=== PATIENT | male | born 1995 | race Caucasian/White ===

== ENCOUNTER 2018-01-10 12:57 | Emergency (ER) | payer OTHER ==
[~2018-01-10] VITALS: Ht 172.7 cm; Wt 75.0 kg
[2018-01-10 13:04] VITALS: TEMP 37; Ht 172.7 cm; Wt 75.0 kg
[2018-01-10] MEDS ORDERED: IBUPROFEN 600 MG TAB PO STA (13:33)
[2018-01-10 14:01] LABS: BASO % 0.3 %; BASO ABS # 0.02 K/uL (0-0.2); EOS % 0.5 %; EOS ABS # 0.04 K/uL (0-0.5); HEMATOCRIT 40.9 % (42-52); HEMOGLOBIN 13.7 g/dL (14.0-18.0); IG# 0.02 K/uL (0.00-0.02); LYMPH % 16.3 %; LYMPH ABS # 1.24 K/uL (1.2-3.4); MEAN CELL VOLUME 84.5 fL (80-100); MEAN CORPUSCULAR HEMOGLOBIN 28.3 pg (25-34); MEAN CORPUSCULAR HGB CONC 33.5 g/dl (32-36); MEAN PLATELET VOLUME 10.4 fL (7.4-10.4); MONO % 12.6 %; MONO ABS # 0.96 K/uL (0.11-0.59); NEUT ABS # 5.35 K/uL (1.4-6.5); PLATELET COUNT 199 K/uL (130-400); RED CELL DISTRIBUTION WIDTH CV 12.5 % (11.5-14.5); RED CELL DISTRIBUTION WIDTH SD 38.2 fL (36.4-46.3); WHITE BLOOD COUNT 7.63 K/uL (4.8-10.8)
[2018-01-10 14:14] LABS: PTT PATIENT 25.4 SECONDS (21.0-31.0)
[2018-01-10 14:19] LABS: CREATININE 0.92 mg/dl (0.60-1.40); POTASSIUM 3.7 mmol/L (3.5-5.1)
--- NOTE | 2018-01-10 14:42 | DIAGNOSTIC IMAGING REPORT ---
CT RIGHT FOOT NO CONTRAST CT DOSE: 212.86 mGy.cm CLINICAL HISTORY: Right foot pain and swelling. Negative conventional graphic study. TECHNIQUE: Helical images were acquired in the transverse plane. Sagittal and coronal reformatted imaging was acquired A dose lowering technique was utilized adhering to the principles of ALARA. COMPARISON STUDY: Conventional radiographic study dated 01/08/2018 FINDINGS: There is a 7 mm chip/avulsion fracture arising from the lateral aspect of the cuboid. There is a 3 mm chip fracture arising from the lateral aspect of the lateral cuneiform. There are tiny bony fragments adjacent to the bases of the second and third metatarsals, likely representing chip fractures. There is no evidence of tarsal metatarsal subluxation. There is prominent soft tissue edema. There are dorsal soft tissue lesions possibly representing areas of blistering. Clinical correlation is advocated. No fractures of the calcaneus or talus are visualized. The distal tibia and fibula are unremarkable in appearance. IMPRESSION: 1. 7 mm chip/avulsion fracture arising from the lateral aspect of the cuboid 2. 3 mm chip fracture arising from the lateral aspect of the lateral cuneiform 3. Tiny bony fragments adjacent to the base of the second and third metatarsals, likely representing chip fractures Electronically signed by: Luis Eduardo Clements M.D. 01/10/2018 2:40 PM Dictated Date/Time: 01/10/2018 2:27 PM
--- NOTE | 2018-01-10 14:46 | EMERGENCY ROOM VISIT NOTE ---
History First contact with patient: 13:10 Chief Complaint: FOOT PAIN Stated Complaint: POSSIBLE COMPARTMENT SYNDROME RIGHT FOOT History of Present Illness The patient is a 22 year old male who presents to the Emergency Room with complaints of worsening right foot bruising, swelling, and pain. He states on Wednesday he was seen here in the evening due to a sprain/contusion of the right foot. He had been running around at a tailgate when he tripped, falling and landing on the foot. No fractures noted on x-rays at the time of the patient's visit. He has been using ice and elevating the foot, but has taken no medications for inflammation. He states he does have good mobility in the feet and toes, denies any numbness, however there is tingling and decreased sensation in the toes. He noticed blistering on the dorsal aspect of the foot, but denies any drainage. The patient has been wearing a postop shoe and using crutches for the past 2 days, but symptoms have been worsening. He went to urgent care today due to worsening symptoms. He was sent to the emergency department from urgent care to rule out compartment syndrome. He denies any previous fracture to this foot. He denies any drainage from the wound. He denies any purulent drainage or fever. He denies any significantly worsening or spreading redness. The patient denies any new injury. He has been attempting to avoid weightbearing as much as possible while home and using his crutches. Review of Systems A complete 10 point review of systems was reviewed with the patient with pertinent positives and negatives as per history of present illness. All else were negative. Past Medical/Surgical History Medical Problems: (1) No significant active problems Social History Smoking Status: Never Smoker Alcohol Use: occasionally Occupation Status: [employer] student Current/Historical Medications Scheduled Acetaminophen (Tylenol), 2 TAB PO Q6 Scheduled PRN Oxycodone Immediate Rel Tab (Roxicodone Ir), 1-2 TAB PO Q4H PRN for Pain Physical Exam Vital Signs Date Time Temp Pulse Resp B/P (MAP) Pulse Ox O2 Delivery O2 Flow Rate FiO2 01/10/18 16:53 76 16 155/93 98 01/10/18 13:04 37.0 77 20 132/85 99 Room Air Physical Exam VITAL SIGNS: Reviewed Nurse's notes, vital signs stable. GENERAL: This is a 22-year-old male, in no acute distress, but appears in pain, well-developed, well-nourished. MUSCULOSKELATAL: There is significant swelling, ecchymosis, and to an open blisters on the dorsal aspect of the right foot. There is mild erythema. There is mild warmth in the midfoot, with coolness of the toes. There is tenderness and swelling over the mid to distal aspect of the right foot. There is no tenderness over the lateral or medial malleolus. No tenderness of the tib/fib. The range of motion of the foot, toes, and ankle is severely limited secondary to pain. There is no tenderness over the plantar fascia. The skin is intact and there are no lacerations or puncture wounds. Dorsalis pedis pulse 2+ . Capillary refill less than 2 seconds. Medical Decision & Procedures ER Provider Diagnostic Interpretation: CT RIGHT FOOT NO CONTRAST CT DOSE: 212.86 mGy.cm CLINICAL HISTORY: Right foot pain and swelling. Negative conventional graphic study. TECHNIQUE: Helical images were acquired in the transverse plane. Sagittal and coronal reformatted imaging was acquired A dose lowering technique was utilized adhering to the principles of ALARA. COMPARISON STUDY: Conventional radiographic study dated 01/08/2018 FINDINGS: There is a 7 mm chip/avulsion fracture arising from the lateral aspect of the cuboid. There is a 3 mm chip fracture arising from the lateral aspect of the lateral cuneiform. There are tiny bony fragments adjacent to the bases of the second and third metatarsals, likely representing chip fractures. There is no evidence of tarsal metatarsal subluxation. There is prominent soft tissue edema. There are dorsal soft tissue lesions possibly representing areas of blistering. Clinical correlation is advocated. No fractures of the calcaneus or talus are visualized. The distal tibia and fibula are unremarkable in appearance. IMPRESSION: 1. 7 mm chip/avulsion fracture arising from the lateral aspect of the cuboid 2. 3 mm chip fracture arising from the lateral aspect of the lateral cuneiform 3. Tiny bony fragments adjacent to the base of the second and third metatarsals, likely representing chip fractures Electronically signed by: Luis Eduardo Clements M.D. 01/10/2018 2:40 PM Dictated Date/Time: 01/10/2018 2:27 PM R FOOT 2 VIEWS CLINICAL HISTORY: right foot fracture, r/o lis franc fx trauma. Pain. COMPARISON: CT 01/10/2018 DISCUSSION: The small avulsion fractures of the right foot are unchanged. Bony alignment is unaltered bilaterally. There is no evidence for Lisfranc dislocation. Mild soft tissue edema. Lateral projection is unremarkable. IMPRESSION: Small avulsions as procedure described. No acute process. No evidence for Lisfranc dislocation or disruption The above report was generated using voice recognition software. It may contain grammatical, syntax or spelling errors. Electronically signed by: Sher Lopez M.D. 01/10/2018 3:48 PM Dictated Date/Time: 01/10/2018 3:46 PM Study: Trauma. Fracture. Findings: Weightbearing views of the feet were obtained AP as well as lateral projections. Final images demonstrate all bony structures to be aligned anatomically. There is no evidence for disruption of the normal bony alignment pattern. IMPRESSION: Negative weightbearing views of the feet and ankles Electronically signed by: Sher Lopez M.D. 01/10/2018 3:50 PM Dictated Date/Time: 01/10/2018 3:49 PM Laboratory Results 01/10/18 13:48 Red Blood Count 4.84, Mean Corpuscular Volume 84.5, Mean Corpuscular Hemoglobin 28.3, Mean Corpuscular Hemoglobin Concent 33.5, Mean Platelet Volume 10.4, Neutrophils (%) (Auto) 70.0, Lymphocytes (%) (Auto) 16.3, Monocytes (%) (Auto) 12.6, Eosinophils (%) (Auto) 0.5, Basophils (%) (Auto) 0.3, Neutrophils # (Auto ) 5.35, Lymphocytes # (Auto) 1.24, Monocytes # (Auto) 0.96, Eosinophils # (Auto ) 0.04, Basophils # (Auto) 0.02 01/10/18 13:48 Test 01/10/18 13:48 White Blood Count 7.63 K/uL (4.8-10.8) Red Blood Count 4.84 M/uL (4.7-6.1) Hemoglobin 13.7 g/dL (14.0-18.0) Hematocrit 40.9 % (42-52) Mean Corpuscular Volume 84.5 fL (80-100) Mean Corpuscular Hemoglobin 28.3 pg (25-34) Mean Corpuscular Hemoglobin Concent 33.5 g/dl (32-36) Platelet Count 199 K/uL (130-400) Mean Platelet Volume 10.4 fL (7.4-10.4) Neutrophils (%) (Auto) 70.0 % Lymphocytes (%) (Auto) 16.3 % Monocytes (%) (Auto) 12.6 % Eosinophils (%) (Auto) 0.5 % Basophils (%) (Auto) 0.3 % Neutrophils # (Auto) 5.35 K/uL (1.4-6.5) Lymphocytes # (Auto) 1.24 K/uL (1.2-3.4) Monocytes # (Auto) 0.96 K/uL (0.11-0.59) Eosinophils # (Auto) 0.04 K/uL (0-0.5) Basophils # (Auto) 0.02 K/uL (0-0.2) RDW Standard Deviation 38.2 fL (36.4-46.3) RDW Coefficient of Variation 12.5 % (11.5-14.5) Immature Granulocyte % (Auto) 0.3 % Immature Granulocyte # (Auto) 0.02 K/uL (0.00-0.02) Prothrombin Time 10.9 SECONDS (9.0-12.0) Prothromb Time International Ratio 1.0 (0.9-1.1) Activated Partial Thromboplast Time 25.4 SECONDS (21.0-31.0) Partial Thromboplastin Ratio 1.0 Anion Gap 7.0 mmol/L (3-11) Est Creatinine Clear Calc Drug Dose 123.9 ml/min Estimated GFR () 138.3 Estimated GFR (Non- 119.3 BUN/Creatinine Ratio 11.1 (10-20) Lactic Acid Level 2.8 mmol/L (0.4-2.0) Calcium Level 9.0 mg/dl (8.5-10.1) Total Creatine Kinase 330 U/L (39-308) Medications Administered Medications (Trade) Dose Ordered Sig/Iain Route Start Time Stop Time Status Last Admin Dose Admin Ibuprofen (Motrin Tab) 800 mg NOW STAT PO 01/10/18 13:33 01/10/18 13:34 DC 01/10/18 13:39 800 MG Acetaminophen (Tylenol Tab) 1,000 mg NOW STAT PO 01/10/18 15:10 01/10/18 15:11 DC 01/10/18 15:30 1,000 MG ED Course The patient was seen and evaluated as above. He was given ibuprofen 800 mg and ice. His foot was placed in an elevated position. I discussed the case with Dr. urena. We agreed on management plan. IV access obtained, labs drawn. CT scan performed and reviewed by myself and radiologist as above. I consulted with Dr. Toro, orthopedic surgeon regarding the patient condition and possible consult. He did agree to come and evaluate the patient. Please see his dictation. He did request weightbearing standing AP x-rays of the bilateral feet and one frame. This was ordered. The patient was provided with prescriptions and discharge instructions. The patient was discharged home in good condition. Medical Decision This is a 22-year-old male patient presents to the emergency department today complaining of worsening bruising, swelling, blisters on his right foot. The patient did suffer a sprain/contusion on Wednesday, and presented to the emergency department was significant swelling of the foot. X-rays at that time were negative. He sought care at urgent care today, and was advised to come to the emergency department to rule out compartment syndrome. While here, CT scan was performed and did reveal multiple fractures as outlined above. The patient' s lab evaluation was significant for mild elevation in CK of 330 with elevated lactic acid of 2.8. I suspect these findings are related to the fracture and swelling. I did discuss these test results with the orthopedic surgeon. The patient's renal function and electrolytes were normal. His CBC was without significant leukocytosis, anemia, thrombocytopenia. Based on the patient's examination and lab and imaging findings, orthopedics was consulted. The patient was seen here in the emergency department by Dr. Toro who did splint the foot. The patient will be followed up outpatient this week for further management and care. All questions were answered to the patient's satisfaction. Etiologies such as soft tissue injury, fracture, dislocation, neurovascular compromise, compartment syndrome, as well as others were entertained. The chart was completed utilizing [employer] voice recognition software. Grammatical errors, random word insertions, pronoun errors, and incomplete sentences are an occasional consequence of this system due to software limitations, ambient noise, and hardware issues. Any formal questions or concerns about the content, text, or information contained within the body of this dictation should be directly addressed to the provider for clarification. [place] Drug Monitoring Program Search Results: patient reviewed within database, no issues identified Medication Reconcilliation Current Medication List: was personally reviewed by me Blood Pressure Screening Patient's blood pressure: Normal blood pressure Impression Primary Impression: Multiple fractures of right foot Departure Information Dispostion Home / Self-Care Condition GOOD Prescriptions Acetaminophen (Tylenol) 500 Mg Tab 2 TAB PO Q6, #100 TAB Prov: Kirstie Hernandez PA-C 01/10/18 Oxycodone Immediate Rel Tab (ROXICODONE IR) 5 Mg Tab 1-2 TAB PO Q4H Y for Pain, #36 TAB Prov: Kirstie Hernandez PA-C 01/10/18 Referrals No Doctor, Assigned (PCP) Elbert Toro MD Patient Instructions ED Fx Foot, Lisfranc Joint Injury About, My [facility] Additional Instructions You were seen in the ED today for multiple fractures of the right foot. Oxycodone (OxyIR) 5mg: Take 1-2 pills every four hours as needed for breakthrough pain. Avoid alcohol, operating machinery or dangerous equipment, working on ladders or roofs, DRIVING, or situations where being under the influence may be dangerous. It is recommended to use an [id number] stool softener such as Colace, 100mg twice daily while taking this medication to avoid constipation. Ibuprofen(Motrin, Advil) may be used for fever or pain. Use 600mg every six hours as needed. Take with food. Avoid using more than 2400mg in a 24 hour period. Do not use 2400mg per day for more than three consecutive days without physician direction. Prolonged inappropriate use can lead to stomach upset or ulcers. (AND/OR) Acetaminophen(Tylenol) may be used for fever or pain. Use 1000mg every six hours as needed. Avoid using more than 3000mg in a 24 hour period. Ice compresses for 20 minutes at a time four times daily for 2-3 days. Use the crutches as instructed. Avoid ALL weight bearing until directed by orthopedics. Rest and elevate your injury. Do not get the splint wet. If your splint feels excessively tight, you have worsening pain, develop numbness or tingling, or your digits appear blue, loosen the will wrap. Then reapply the will wrap gently without removing the splint. If your symptoms are not quickly relieved return to the ER for re- evaluation. Return to the ER immediately for any numbness, tingling, severe pain, extreme swelling in the extremity or as needed. Call [facility], [phone], as directed by Dr. Toro to arrange follow up for your injury. Problem Qualifiers Primary Impression: Multiple fractures of right foot Encounter type: subsequent encounter Fracture type: closed Fracture healing : with routine healing Qualified Codes: S92.901D - Unspecified fracture of right foot, subsequent encounter for fracture with routine healing
[2018-01-10] MEDS ORDERED: ACETAMINOPHEN 500 MG TAB PO STA (15:10)
--- NOTE | 2018-01-10 15:40 | Orthopedic Consultation ---
Orthopedic Consultation Date of Consultation: Jan 10, 2018. Attending Physician: Dr. Elbert Toro Reason for Consultation: Right foot Lis Los injury History of Present Illness This 23 yo M was seen in ED today for severe pain, swelling and bruising of Rt foot with development of Fracture blisters on dorsal surface of foot yesterday. Pt sustained hyperflexion type injury while attending a tailgate constitution party at the [employer] Wednesday. Pt was initially seen in ED Wednesday evening, placed into splint, given crutches and advised to be non-weightbearing and to follow up at our clinic some time this week. Due to increased pain not controlled with Ibuprofen, patient came back to ED today. Pt has N/T sensation in all toes and has sign pain with ROM of foot. Social History Smoking Status: Never Smoker Smokeless Tobacco Use: No Alcohol Use: socially Drug Use: none Marital Status: single Housing Status: lives with roommate Occupation Status: [employer] student Allergies Coded Allergies: No Known Allergies (Unverified , 01/09/18) Home Medications No Active Prescriptions or Reported Meds Review of Systems Constitutional: No fever, No chills, No sweats, No weight loss, No weakness, No fatigue, No problem reported Respiratory: No cough, No sputum, No wheezing, No shortness of breath, No dyspnea on exertion, No dyspnea at rest, No hemoptysis, No problem reported Cardiovascular: No chest pain, No orthopnea, No PND, No edema, No claudication , No palpitations, No problem reported Musculoskeletal: + joint pain, + muscle pain, + swelling Neurologic: + numbness/tingling (Right foot/toes) Integumentary: + new/changing skin lesions (fracture blisters to dorsal surface of foot) Physical Exam Date Time Temp Pulse Resp B/P (MAP) Pulse Ox O2 Delivery O2 Flow Rate FiO2 01/10/18 13:04 37.0 77 20 132/85 99 Room Air General Appearance: WD/WN, no apparent distress Head: normocephalic, atraumatic Eyes: PERRL, EOMI Extremities/Musculoskelatal: + pedal edema, + swelling, + pertinent finding ( Right foot: moderate edema and ecchymosis extending from ankle to DIP joints of all toes. Tender over entire dorsum of foot. #2 fracture blisters over distal portion of dorsum approx 1.5 x 1.5 cm and fluid filled. Tender over lateral ankle (ATFL). Tender over plantar surface of arch with edema and ecchymosis noted. N/T sensation to light touch over pads of all toes. Referred pain to base of 1st Metatarsal with active ROM of great toe. Mild pain with internal /external rotation of foot/ankle. Mild pain with active dorsi/plantar flexion. No achilles or calcaneal tenderness. Ecchymosis noted just distal to medial and lateral malleoli. Otherwise NV intact in RT LE. Calfs soft. Periph pulses palpable. Cap refill < 2 seconds.) Neurologic/Psych: alert, oriented x 3 Skin: + pertinent finding (See Musculoskeletal) Laboratory Results Last 24 Hours Test 01/10/18 13:48 White Blood Count 7.63 K/uL Red Blood Count 4.84 M/uL Hemoglobin 13.7 g/dL Hematocrit 40.9 % Mean Corpuscular Volume 84.5 fL Mean Corpuscular Hemoglobin 28.3 pg Mean Corpuscular Hemoglobin Concent 33.5 g/dl Platelet Count 199 K/uL Mean Platelet Volume 10.4 fL Neutrophils (%) (Auto) 70.0 % Lymphocytes (%) (Auto) 16.3 % Monocytes (%) (Auto) 12.6 % Eosinophils (%) (Auto) 0.5 % Basophils (%) (Auto) 0.3 % Neutrophils # (Auto) 5.35 K/uL Lymphocytes # (Auto) 1.24 K/uL Monocytes # (Auto) 0.96 K/uL Eosinophils # (Auto) 0.04 K/uL Basophils # (Auto) 0.02 K/uL RDW Standard Deviation 38.2 fL RDW Coefficient of Variation 12.5 % Immature Granulocyte % (Auto) 0.3 % Immature Granulocyte # (Auto) 0.02 K/uL Prothrombin Time 10.9 SECONDS Prothromb Time International Ratio 1.0 Activated Partial Thromboplast Time 25.4 SECONDS Partial Thromboplastin Ratio 1.0 Sodium Level 142 mmol/L Potassium Level 3.7 mmol/L Chloride Level 108 mmol/L Carbon Dioxide Level 27 mmol/L Anion Gap 7.0 mmol/L Blood Urea Nitrogen 10 mg/dl Creatinine 0.92 mg/dl Est Creatinine Clear Calc Drug Dose 123.9 ml/min Estimated GFR () 138.3 Estimated GFR (Non- 119.3 BUN/Creatinine Ratio 11.1 Random Glucose 94 mg/dl Lactic Acid Level 2.8 mmol/L Calcium Level 9.0 mg/dl Total Creatine Kinase 330 U/L Assessment & Plan Assessment: Rt foot Lis Franc injury. Plan: Standing weight bearing views. Place into plaster posterior/sugar tong splint. Plan on follow up at our clinic later this week.
--- NOTE | 2018-01-10 15:50 | DIAGNOSTIC IMAGING REPORT ---
R FOOT 2 VIEWS CLINICAL HISTORY: right foot fracture, r/o lis franc fx trauma. Pain. COMPARISON: CT 01/10/2018 DISCUSSION: The small avulsion fractures of the right foot are unchanged. Bony alignment is unaltered bilaterally. There is no evidence for Lisfranc dislocation. Mild soft tissue edema. Lateral projection is unremarkable. IMPRESSION: Small avulsions as procedure described. No acute process. No evidence for Lisfranc dislocation or disruption The above report was generated using voice recognition software. It may contain grammatical, syntax or spelling errors. Electronically signed by: Sher Lopez M.D. 01/10/2018 3:48 PM Dictated Date/Time: 01/10/2018 3:46 PM
--- NOTE | 2018-01-10 15:52 | DIAGNOSTIC IMAGING REPORT ---
Study: Trauma. Fracture. Findings: Weightbearing views of the feet were obtained AP as well as lateral projections. Final images demonstrate all bony structures to be aligned anatomically. There is no evidence for disruption of the normal bony alignment pattern. IMPRESSION: Negative weightbearing views of the feet and ankles Electronically signed by: Sher Lopez M.D. 01/10/2018 3:50 PM Dictated Date/Time: 01/10/2018 3:49 PM
[2018-01-10] MEDS ORDERED: OXYC1TAB3 PO (16:21)
[2018-01-10] MEDS ORDERED: ACET-1256 PO (16:21)
[2018-01-10 16:53] VITALS: BP 155/93; PULSE 76; O2SAT 98
== END 2018-01-10 16:57 | disposition home or self-care (01) ==
LOC: C.EDB 12:59 → C.EDD 16:57
DX: S92.211A Displaced fracture of cuboid bone of right foot, initial encounter for closed fracture (principal); S92.221A Displaced fracture of lateral cuneiform of right foot, initial encounter for closed fracture; S92.321A Displaced fracture of second metatarsal bone, right foot, initial encounter for closed fracture; S92.331A Displaced fracture of third metatarsal bone, right foot, initial encounter for closed fracture; W17.89XA Other fall from one level to another, initial encounter; Y92.89 Other specified places as the place of occurrence of the external cause